=== PATIENT | male | born 1990 | race Caucasian/White ===

== ENCOUNTER 2018-04-24 12:40 | Emergency (ER) | payer OTHER ==
[~2018-04-24] VITALS: Ht 177.8 cm; Wt 100.9 kg
[~2018-04-24 12:40] MED LIST: BUSPAR10 MG PO; DESYREL100 MG PO; HYDROXYZINE PAM25 MG PO; VIIBRYD10 MG PO
[2018-04-24 13:54] LABS: HEMATOCRIT 36.4 % (38.0-50.0); HEMOGLOBIN 12.7 G/DL (12.5-16.6); MCH 30.8 PG (29.0-34.0); MCHC 34.9 G/DL (30.0-36.0); MCV 88.1 FL (86-99); PLATELET COUNT 261 K/uL (156-360); RBC DIS.WIDTH-CV 12.7 % (11.8-14.6); RBC DIS.WIDTH-SD 41.1 % (39-53); RED BLOOD COUNT 4.13 M/uL (4.00-5.50); WHITE BLOOD COUNT 15.1 K/uL (4.1-10.2)
[2018-04-24 14:07] LABS: CHLORIDE 104 mEq/L (99-109); POTASSIUM 3.8 mEq/L (3.7-5.4); SODIUM 138 mEq/L (136-147)
[2018-04-24 14:08] LABS: GLUCOSE 87 mg/dL (70-99)
[2018-04-24 14:12] LABS: CREATININE 0.9 mg/dL (0.6-1.3); GFR ESTIMATE (CALCULATED) > 59 mL/min/ (58.99-99999)
[2018-04-24 14:13] LABS: TROP-I INTERPRETATION NEGATIVE; TROPONIN-I 0.01 ng/mL (0.0-0.30); UREA NITROGEN (BUN) 11 mg/dL (9-23)
[2018-04-24] MEDS ORDERED: ZITHROMAX Z-PA250 MG PO (16:31)
[2018-04-24] MEDS ORDERED: PREDNISONE5 M1 PO (16:31)
[2018-04-24] MEDS ORDERED: VENTOLIN HFA18 GM IH (16:31)
[2018-04-24 16:41] VITALS: BP 125/71
== END 2018-04-24 16:44 | disposition home or self-care (01) ==
LOC: EME 12:40
DX: J06.9 Acute upper respiratory infection, unspecified (principal); F17.200 Nicotine dependence, unspecified, uncomplicated; F41.9 Anxiety disorder, unspecified
CPT/HCPCS: 71046; 80048; 84484; 85027; 93005; 94640; 99281; 99285; J7030

== ENCOUNTER 2018-06-14 20:45 | Emergency (ER) | payer OTHER ==
[~2018-06-14] VITALS: Ht 177.8 cm; Wt 101.7 kg
[~2018-06-14 20:45] MED LIST changes: +PREDNISONE5 M1 PO; +VENTOLIN HFA18 GM IH; +ZITHROMAX Z-PA250 MG PO
[2018-06-14 21:28] LABS: HEMATOCRIT 40.5 % (38.0-50.0); MCH 29.9 PG (29.0-34.0); MCHC 34.6 G/DL (30.0-36.0); MCV 86.4 FL (86-99); PLATELET COUNT 297 K/uL (156-360); RBC DIS.WIDTH-CV 13.2 % (11.8-14.6); RBC DIS.WIDTH-SD 41.1 % (39-53); RED BLOOD COUNT 4.69 M/uL (4.00-5.50); WHITE BLOOD COUNT 11.1 K/uL (4.1-10.2)
[2018-06-14 21:37] LABS: CHLORIDE 110 mEq/L (99-109); SODIUM 141 mEq/L (136-147)
[2018-06-14 21:39] LABS: GLUCOSE 107 mg/dL (70-99)
[2018-06-14 21:43] LABS: CREATININE 1.2 mg/dL (0.6-1.3); GFR ESTIMATE (CALCULATED) > 59 mL/min/ (58.99-99999)
[2018-06-14 21:44] LABS: UREA NITROGEN (BUN) 12 mg/dL (9-23)
[2018-06-15 00:05] VITALS: BP 137/89
== END 2018-06-15 00:06 | disposition home or self-care (01) ==
LOC: EME 20:45
PROVIDERS: Physician Assistant
DX: R76.11 Nonspecific reaction to tuberculin skin test without active tuberculosis (principal); F41.9 Anxiety disorder, unspecified; F17.200 Nicotine dependence, unspecified, uncomplicated
CPT/HCPCS: 71046; 80048; 85027; 99281; 99284